=== PATIENT | female | born 2000 | race Two or more races ===

== ENCOUNTER 2023-06-21 09:51 | Emergency (ER) | payer BC, OTHER ==
[~2023-06-21] VITALS: Ht 152.4 cm; Wt 47.7 kg
[2023-06-21 10:13] VITALS: BP 128/85; PULSE 72; RESP 18; TEMP 99.5; O2SAT 100
[2023-06-21] MEDS ORDERED: MECL1TAB42 PO (10:26)
[2023-06-21] MEDS ORDERED: AMOX875T3 PO (10:26)
== END 2023-06-21 10:33 | disposition home or self-care (01) ==
LOC: ER 09:51
DX: H66.92 Otitis media, unspecified, left ear (principal); Z79.2 Long term (current) use of antibiotics; Z79.899 Other long term (current) drug therapy; Z88.8 Allergy status to other drugs, medicaments and biological substances